=== PATIENT | female | born 1955 | race Asian ===

== ENCOUNTER 2019-02-04 13:54 | Outpatient (CLI) | payer MEDICARE, MEDICAID ==
[~2019-02-04] VITALS: Ht 162.6 cm; Wt 64.9 kg
[2019-02-04 14:51] VITALS: BP 131/86
--- NOTE | 2019-02-05 15:45 | Consultation ---
DATE OF CONSULTATION: 02/04/2019 CONSULTING PHYSICIAN: Roger Song M.D. CHIEF COMPLAINT: History of colorectal cancer referral followup. HISTORY OF PRESENT ILLNESS: This is a 64-year-old female with past medical history of questionable rectal cancer versus colon and most probably rectal cancer diagnosed in 2016 treated with only chemotherapy according to her, no surgery was done. She is here for followup colonoscopy. PAST MEDICAL HISTORY: 1. History of colorectal cancer. 2. Hypertension. 3. Asthma. 4. Diabetes. ALLERGIES: No known drug allergies. MEDICATIONS: Please see medication reconciliation list. PAST SURGICAL HISTORY: None. SOCIAL HISTORY: The patient denies any tobacco, alcohol, or drug abuse. FAMILY HISTORY: Mother had breast cancer. REVIEW OF SYSTEMS: A 10-point review of systems was performed, pertinent positives in HPI. PHYSICAL EXAMINATION: VITAL SIGNS: Temperature 98.5, blood pressure 131/80, pulse is 100, respirations 20. HEENT: Normocephalic and atraumatic. Sclerae anicteric. NECK: Supple. No evidence of lymphadenopathy. CARDIOVASCULAR: Regular rate and rhythm. Plus S1 and S2. LUNGS: Clear to auscultation bilaterally. ABDOMEN: Positive bowel sounds. Soft and nontender. No rebound. No guarding. No peritoneal sign. EXTREMITIES: No cyanosis, no clubbing, no edema. ASSESSMENT AND PLAN: This is a 64-year-old female with history of colorectal cancer, most probably seems to be a rectal cancer, only was given chemotherapy, and no surgery. She is here. She is not exactly sure. Most probably, for repeat colonoscopy according to her. We will try to get the records from the primary care physician colonoscopy from oncologist and food specialist and GI doctor. We are now going to try to get authorization for repeat colonoscopy for her. Roger Song M.D. DR: DIAMANTE JOB#: [id number] CC:
[2019-02-06] MEDS ORDERED: SYMBICORT 16010.2 G1 IH (08:20)
[2019-02-06] MEDS ORDERED: LOSARTAN-HCTZ1 EAC1 ORAL (08:20)
[2019-02-06] MEDS ORDERED: METFORMIN HCL500 M1 ORAL (08:20)
[2019-02-06] MEDS ORDERED: GABAPENTIN600 MG ORAL (08:20)
[2019-02-06] MEDS ORDERED: AMLODIPINE BESYL5 MG ORAL (08:20)
[2019-02-06] MEDS ORDERED: MONTELUKAST SOD10 MG ORAL (08:20)
== END 2019-02-04 15:42 | disposition home or self-care (01) ==
LOC: PAN 13:54
DX: Z85.038 Personal history of other malignant neoplasm of large intestine (principal); I10 Essential (primary) hypertension; E11.9 Type 2 diabetes mellitus without complications
CPT/HCPCS: 99202

== ENCOUNTER 2019-02-25 07:30 | Day surgery (SDC) | payer MEDICARE, MEDICAID ==
[~2019-02-25] VITALS: Ht 162.6 cm; Wt 62.6 kg
[2019-02-25] VITALS (8 sets, daily range): BP systolic 90–123; BP diastolic 49–80
--- NOTE | 2019-02-25 07:25 | Anethesia Preoperative Eval ---
Anesthesia Pre-op PMH/ROS General Date of Evaluation: Feb 25, 2019 Anesthesiologist: Rosendo ASA Score: ASA 3 Mallampati Score Class I : Soft palate, uvula, fauces, pillars visible Class II: Soft palate, uvula, fauces visible Class III: Soft palate, base of uvula visible Class IV: Only hard plate visible Mallampati Classification: Class II Surgeon: Duncan Diagnosis: h/o Colorectal cancer Surgical Procedure: Colonoscopy Anesthesia History: none Family History: no anesthesia problems Allergies: Coded Allergies: LATEX (Verified Allergy, Intermediate, 02/25/19) RASH Medications: see eMAR Patient NPO?: Yes NPO Date: Feb 24, 2019 NPO Time: 22:00 Past Medical History Cardiovascular: Reports: HTN; Denies: CAD, MS, valve dz, arrhythmia, other Pulmonary: Reports: asthma, COPD; Denies: FRANCI, other Gastrointestinal/Genitourinary: Reports: other - h/o colorectal cancer; Denies: GERD, CRI, ESRD Neurologic/Psychiatric: Denies: dementia, CVA, depression/anxiety, TIA, other Endocrine: Reports: DM; Denies: hypothyroidism, steroids, other HEENT: Denies: cataract (L), cataract (R), glaucoma, ANDREAFSKI (L), ANDREAFSKI (R), other Hematology/Immune: Reports: anemia - chronic; Denies: DVT, bleeding disorder, other Musculoskeletal/Integumentary: Denies: OA, RA, DJD, DDD, edema, other Anesthesia Pre-op Phys. Exam Physician Exam see chart Constitutional: NAD Cardiovascular: RRR Respiratory: CTA Airway Exam Mallampati Score: Class II MO: full ROM: full Anesthesia Pre-op A/P Labs see chart Studies Pre-op Studies: EKG - rbbb Risk Assessment & Plan Assessment: ASA III Plan: MAC Status Change Before Surgery: No Pre-Antibiotics Drug: N/A Nolvia Briseno MD Feb 25, 2019 07:25
[~2019-02-25 07:30] MED LIST: AMLODIPINE BESYL5 MG ORAL; DiphenhydrAMINE 50mg/ml Inj IVP PRN; GABAPENTIN600 MG ORAL; LOSARTAN-HCTZ1 EAC1 ORAL; METFORMIN HCL500 M1 ORAL; MONTELUKAST SOD10 MG ORAL; SYMBICORT 16010.2 G1 IH
--- NOTE | 2019-02-25 08:38 | Pre-Procedure Note/Attestation ---
Pre-Procedure Note/Attestation Complete Prior to Procedure Planned Procedure: not applicable Procedure Narrative: colonoscopy Indications for Procedure Pre-Operative Diagnosis: h/o colon Caner Attestation I attest that I discussed the nature of the procedure; its benefits; risks and complications; and alternatives (and the risks and benefits of such alternatives ), prior to the procedure, with the patient (or the patient's legal in store marketing representative). I attest that, if there was a reasonable possibility of needing a blood transfusion, the patient (or the patient's legal in store marketing representative) was given the [facility] standardized written summary, pursuant to the Tuan Marty Blood Safety Act ([place] Health and Safety Code # 1645, as amended). I attest that I re-evaluated the patient just prior to the surgery and that there has been no change in the patient's H&P, except as documented below: Roger Song MD Feb 25, 2019 08:38
--- NOTE | 2019-02-25 08:38 | Short Stay Surgery H&P ---
History of Present Illness History of Present Illness Chief Complaint see recent office note HPI Temi Smith is a 64 year old female who was admitted on for Hx Of Colon Cancer Patient History Allergies: Coded Allergies: LATEX (Verified Allergy, Intermediate, 02/25/19) RASH Medication History Scheduled Amlodipine Besylate* (Amlodipine Besylate*), 5 MG ORAL DAILY, (Reported) Budesonide/Formoterol Fumarate (Symbicort 160-4.5 Mcg Inhaler), 2 PUFF IH DAILY, (Reported) Gabapentin* (Gabapentin*), 600 MG ORAL BID, (Reported) Losartan/Hydrochlorothiazide (Losartan-Hctz 100-25 Mg Tab), 1 TAB ORAL DAILY, ( Reported) Metformin Hcl* (Metformin Hcl*), 500 MG ORAL TWICE A DAY, (Reported) Montelukast Sodium* (Montelukast Sodium*), 10 MG ORAL DAILY, (Reported) Physical Exam Vital Signs Last Vital Signs Date Time Temp Pulse Resp B/P (MAP) Pulse Ox O2 Delivery O2 Flow Rate FiO2 02/25/19 08:11 Room Air 02/25/19 08:03 98.3 90 18 123/66 99 Plan Attestation Are the patient's medical conditions optimized for surgery? Roger Sogn MD Feb 25, 2019 08:38
[2019-02-25] MEDS ORDERED: Propofol 200mg/20ml IV ONE (09:00)
[2019-02-25] MEDS ORDERED: LR 1000ml ONE (09:00)
[2019-02-25] MEDS ORDERED: Lidocaine 1% MPF 10mg/ml 5ml ONE (09:00)
--- NOTE | 2019-02-25 09:25 | Endoscopy Procedure Note ---
Endoscopy Procedure Note General Indication for Procedure: rectal cancer Procedures Performed: colonoscopy Operative Findings/Diagnosis: same Specimen: yes Pt Tolerated Procedure Well: Yes Estimated Blood Loss: none Anesthesia Anesthesiologist: johan Anesthesia: MAC Inserted Devices Implant(s) used?: No Quality Quality of Bowel Preparation: Good Did scope reach the cecum?: Yes Was there any complications?: No GI Core Measures 50 yrs or older w/o bx or poly: No 10yrs. F/U recommended: Yes If not recommended, why?: Above average risk 18 years or older w/prev. colo: Yes <3yrs. since last colonoscopy: No Roger Song MD Feb 25, 2019 09:25
--- NOTE | 2019-02-25 09:28 | Immediate Post-Op Evaluation ---
Immediate Post-Op Evalulation Immediate Post-Op Evalulation Procedure: Colonoscopy Date of Evaluation: Feb 25, 2019 Time of Evaluation: 09:29 IV Fluids: 400 Blood Products: 0 Estimated Blood Loss: 0 Urinary Output: 0 Blood Pressure Systolic: 99 Blood Pressure Diastolic: 49 Pulse Rate: 85 Respiratory Rate: 16 O2 Sat by Pulse Oximetry: 100 Temperature (Fahrenheit): 98.6 Pain Score (1-10): 0 Nausea: No Vomiting: No Complications 0 Patient Status: awake, reacts, patent, none Hydration Status: adequate Drug: N/a Nolvia Briseno MD Feb 25, 2019 09:28
--- NOTE | 2019-02-25 09:28 | 48 Hour Post Anesthesia Eval ---
Post Anesthesia Evaluation Procedure: Colonoscopy Date of Evaluation: Feb 25, 2019 Airway: patent Nausea: No Vomiting: No Pain Intensity: 0 Hydration Status: adequate Cardiopulmonary Status: at baseline Mental Status/LOC: patient returned to baseline Post-Anesthesia Complications: 0 Follow-up care needed: ready to discharge Nolvia Briseno MD Feb 25, 2019 09:28
--- NOTE | 2019-02-25 18:30 | Procedure Note ---
DATE OF PROCEDURE: 02/25/2019 SURGEON: Roger Song M.D. PROCEDURE: Colonoscopy with biopsy. ANESTHESIA: Per Dr. Robbins. INSTRUMENT: Olympus adult flexible colonoscope. INDICATION: History of rectal cancer. The procedure, risks, benefits, and possible consequences, including hemorrhage, aspiration, perforation and infection, and alternative treatments, were explained to the patient/legal guardian by Dr. Roger Song and the patient/legal guardian understood and accepted these risks. PROCEDURE IN DETAIL: After informed consent was obtained and the patient was adequately sedated, first rectal exam was performed, which was positive for some palpating mass in the rectum. There was a little bit of stricture. We had to gently force the scope through the anal wall into the rectum. Then, the scope was advanced from the rectum into the cecum documented by appendix orifice, ileocecal valve, and right upper quadrant palpation. Quality of prep was very good. The patient had one diminutive polyp in the cecum, removed with the cold biopsy forceps technique. The retroflexion of rectum showed evidence of a mass starting from anal verge. This looks like villous adenomatous type of polyp versus recurrent rectal cancer given the patient has prior history of rectal cancer. Unable to exactly measure this lesion, was roughly measured about 2 to 2.5 cm in size. Multiple biopsy from this area was obtained. The patient had some bleeding after the biopsy. SUMMARY OF FINDINGS: 1. One diminutive polyp in the cecum. 2. A polypoid mass in the rectum, suspicious for recurrent rectal malignancy, starting at the anal verge, status post biopsy. RECOMMENDATIONS: 1. Follow up pathology. 2. The patient most probably will benefit from EUS regarding staging of this if the biopsies come back diagnostic as adenocarcinoma. The patient needs to be followed by Surgery and Oncology. Roger Song M.D. DR: MICHAEL JOB#: [id number] CC:
== END 2019-02-25 10:00 | disposition home or self-care (01) ==
LOC: GAS 07:30
DX: K63.5 Polyp of colon (principal); C20 Malignant neoplasm of rectum; D12.0 Benign neoplasm of cecum; Z85.048 Personal history of other malignant neoplasm of rectum, rectosigmoid junction, and anus; Z91.040 Latex allergy status; Z79.84 Long term (current) use of oral hypoglycemic drugs; Z79.899 Other long term (current) drug therapy; J44.9 Chronic obstructive pulmonary disease, unspecified; E11.9 Type 2 diabetes mellitus without complications; I45.10 Unspecified right bundle-branch block
CPT/HCPCS: 45380; 82962; 93005; J2704; 94003; 94150